=== PATIENT | female | born 1980 | race Caucasian/White ===

== ENCOUNTER → 2023-04-29 | Outpatient (CLI) | payer OTHER ==
--- NOTE | 2023-04-29 15:52 | US ---
EXAMINATION TYPE: US pelvis complete transvag DATE OF EXAM: 04/29/2023 COMPARISON: NONE CLINICAL INDICATION: Female, 42 years old with history of Z30.430 iud placement; IUD placed 6 years a go. Per patient, doctor unable to find and removed. Csection x 2. TECHNIQUE: Transvaginal (TV) and Transabdominal (TA) . Transabdominal sonographic images of the pel vis were acquired. Transvaginal sonographic images were medically necessary to better assess the fol lowing anatomy: Endometrium Date of LMP: Unknown, EXAM MEASUREMENTS: Uterus: 7.0 x 4.9 x 4.2 cm Endometrial Stripe: 0.3 cm Right Ovary: 2.6 x 2.0 x 1.4 cm Left Ovary: 2.8 x 2.2 x 1.8 cm 1. Uterus: Anteverted Heterogenous with no prominent focal lesions visualized at time of scan. 2. Endometrium: IUD visualized with possible location at or near csection area. 3. Right Ovary: follicles seen 4. Left Ovary: hypoechoic lesion with peripheral vascular flow = 1.5 x 1.4 x 1.4 cm 5. Bilateral Adnexa: no free fluid 6. Posterior cul-de-sac: wnl Anterior cul de sac: free fluid Cervix: IUD strings seen Heterogenous anteverted uterus without focal lesion identified. Low-lying intrauterine device which a ppears in the lower uterine segment/ scar. Nonspecific hypoechoic lesion within the left ova ry which may represent a corpus luteum. Small free fluid in the anterior cul-de-sac. IMPRESSION: 1. IUD appears to be low lying within the lower uterine segment at the scar. The IUD strin gs appear to be within the cervical canal. 2. Indeterminate left ovarian 1.5 cm hypoechoic lesion which may represent a corpus luteum. Consider follow-up pelvic ultrasound in 6-12 weeks.
== END | disposition home or self-care (01) ==
LOC: RADUSWWP 14:56
PROVIDERS: ATTEND Obstetrics & Gynecology
DX: Z30.430 Encounter for insertion of intrauterine contraceptive device (principal); N83.8 Other noninflammatory disorders of ovary, fallopian tube and broad ligament
CPT/HCPCS: 76830; 76856

== ENCOUNTER → 2023-05-12 | Outpatient (CLI) | payer OTHER ==
[2023-05-12 15:13] LABS: Basophils # (A) 0.07 X 10*3/uL (0.00-0.10); Basophils % (A) 1.1 %; Eosinophils % (A) 3.2 %; HGB 13.4 d/dL (12.0-15.0); Lymphocytes % (A) 30.2 %; MCH 34.4 pg (27.0-32.0); MCHC 34.4 d/dL (32.0-37.0); MCV 100.3 FL (80.0-97.0); Mean Platelet Volume 8.9 FL (9.5-12.2); Monocytes # (A) 0.75 X 10*3/uL (0.20-1.00); Monocytes % (A) 11.9 %; NRBC Per 100 WBC 0 X 10*3/uL (0.00-0.01); Neutrophils # (A) 3.37 X 10*3/uL (1.80-7.70); Neutrophils % (A) 53.4 %; Platelet Count 333 X 10*3/uL (140-440); RBC 3.89 X 10*6/uL (4.10-5.20); RDW 11.9 % (11.5-14.5)
== END | disposition home or self-care (01) ==
LOC: LABPAT 11:21
PROVIDERS: ATTEND Obstetrics & Gynecology
DX: Z01.812 Encounter for preprocedural laboratory examination (principal)
CPT/HCPCS: 85025

== ENCOUNTER → 2023-07-27 | Outpatient (CLI) | payer OTHER ==
--- NOTE | 2023-07-28 20:06 | MM ---
Reason for Exam: Screening (asymptomatic). Last mammogram was performed 2 year(s) and 3 month(s) ago. Patient History: Menarche at age 13. First Full-Term at age 24. Currently using Hormonal Contraceptives, starting at age 17. Excisional Biopsy on the Left side. Paternal grandmother had breast cancer. Risk Values: Lay 5 year model risk: 0.9%. NCI Lifetime model risk: 10.9%. Prior Study Comparison: 11/17/2018 Bilateral MG screening mammo w CAD - 2, Unknown. 04/29/2021 Bilateral MG screening mammo w CAD - 2, Unknown. Tissue Density: The breast tissue is heterogeneously dense. This may lower the sensitivity of mammography. Findings: Analyzed By CAD. There is no suspicious group of microcalcifications or new suspicious mass in either breast. Overall Assessment: Negative, BI-RAD 1 Management: Screening Mammogram of both breasts in 1 year. . Patient should continue monthly self-breast exams. A clinical breast exam by your physician is recommended on an annual basis. This exam should not preclude additional follow-up of suspicious palpable abnormalities. Note on Lay scores and lifetime risk: 1. A Lay score greater than 3% is considered moderate risk. If this is the case, consider specialist referral to assess eligibility for a risk reducing agent. 2. If overall lifetime risk for the development of breast cancer is 20% or higher, the patient may qualify for future screening with alternating mammogram and breast MRI. Electronically signed and approved by: Jen Sutherland M.D. Radiologist
== END | disposition home or self-care (01) ==
LOC: RADMAMWWP 12:57
PROVIDERS: ATTEND Obstetrics & Gynecology
DX: Z12.31 Encounter for screening mammogram for malignant neoplasm of breast (principal); Z80.3 Family history of malignant neoplasm of breast
CPT/HCPCS: 77063; 77067